=== PATIENT | female | born 1980 | race Hispanic/Latino ===

== ENCOUNTER 2021-06-04 05:37 | Day surgery (SDC) | payer OTHER ==
[2021-06-03 12:37] LABS: BASOPHILS % (AUTO) 0.4 % (0.0-5.0); EOSINOPHILS % (AUTO) 2.2 % (0.0-8.0); HEMATOCRIT 40.2 % (36-48); LYMPHOCYTES % (AUTO) 23.4 % (21.0-51.0); MEAN CORPUSCULAR HEMOGLOBIN 28.3 pg (27.0-33.0); MEAN CORPUSCULAR HGB CONC 32.1 g/dL (32.0-36.0); MEAN CORPUSCULAR VOLUME 88.2 fL (79-99); MONOCYTES % (AUTO) 5.1 % (3.0-13.0); NEUTROPHILS % (AUTO) 68.6 % (40.0-77.0); PLATELET COUNT (AUTO) 398 K/uL (130-400); RED BLOOD CELL COUNT(AUTO) 4.56 MIL/uL (4.00-5.50); RED CELL DISTRIBUTION WIDTH 13.2 % (11.0-15.5); WHITE BLOOD COUNT (AUTO) 9.2 K/uL (4.8-10.8)
[2021-06-03 14:26] VITALS: BP 155/86
[2021-06-03 15:09] LABS: CREATININE 0.7 mg/dL (0.5-1.5); POTASSIUM 4.1 mmol/L (3.5-5.1)
[~2021-06-04] VITALS: Ht 165.1 cm; Wt 95.9 kg
[2021-06-04] VITALS (13 sets, daily range): BP systolic 103–124; BP diastolic 56–76
[~2021-06-04 05:37] MED LIST: ATOR10TA69 PO; BENA10TA77 PO; LACTATED RINGERS 1000ML 1,000 ML IV SCH; METF-446 PO
[2021-06-04] MEDS ORDERED: 0.9%NACL 1000ML 1,000 ML IV ONE (06:02)
[2021-06-04] MEDS ORDERED: DEXAMETHASONE SOD PHOSPHATE 10MG/ML 1ML VIAL ONE (09:39)
[2021-06-04] MEDS ORDERED: SUCCINYLCHOLINE CHLORIDE 20 MG/ML 10 ML VIAL ONE (09:39)
[2021-06-04] MEDS ORDERED: LIDOCAINE PF 100MG/5ML (2%) SYRINGE 5ML ONE ×2 (09:39→10:56)
[2021-06-04] MEDS ORDERED: GLYCOPYRROLATE 1 MG/5 ML SYRINGE ONE (09:42)
[2021-06-04] MEDS ORDERED: ONDANSETRON 4MG INJ ONE (09:42)
[2021-06-04] MEDS ORDERED: MIDAZOLAM HCL 1 MG/ML 2ML VIAL ONE (09:42)
[2021-06-04] MEDS ORDERED: ROCURONIUM 10MG/1ML SYR 10 MG/ML ML ONE ×2 (09:43→10:43)
[2021-06-04] MEDS ORDERED: NEOSTIGMINE 5MG/5ML SYR IV ONE (09:43)
[2021-06-04] MEDS ORDERED: PROPOFOL 10 MG/ML 20ML VIAL IV ONE (09:43)
[2021-06-04] MEDS ORDERED: FENTANYL CITRATE PF 50 MCG/1 ML 2ML VIAL ONE ×2 (09:43→10:13)
[2021-06-04] MEDS ORDERED: MEPERIDINE-PF 25 MG/ML SYG ONE (09:44)
[2021-06-04] MEDS ORDERED: SUGAMMADEX SODIUM 200 MG/2 ML VIAL IV ONE (10:55)
== END 2021-06-04 12:50 | disposition home or self-care (01) ==
LOC: DAH 05:37
PROVIDERS: ATTEND Obstetrics & Gynecology
DX: N73.6 Female pelvic peritoneal adhesions (postinfective) (principal); N83.202 Unspecified ovarian cyst, left side; I10 Essential (primary) hypertension; E66.01 Morbid (severe) obesity due to excess calories; E11.9 Type 2 diabetes mellitus without complications; Z88.0 Allergy status to penicillin; Z79.899 Other long term (current) drug therapy
CPT/HCPCS: 36415; 58660; 80048; 82948 ×2; 84703; 85025; 86850; 86900; 86901; 87426; A4215 ×2; A4221; A4222; A4223; A4344; A4606; A4649 ×4; A4663; A6260; C1769 ×2; J0330; J1100; J2001 ×2; J2175; J2250; J2405; J2704; J2710; J3010 ×2; J3490; J7030 ×2; J7120